=== PATIENT | female | born 1945 | race Caucasian/White ===

== ENCOUNTER 2017-01-06 10:08 | Inpatient (IN) | payer MEDICARE, MEDICAID ==
[~2017-01-06] VITALS: Ht 175.3 cm; Wt 84.1 kg
[~2017-01-06 10:08] MED LIST: GLIP2.5T3 PO; HYDR-3144 PO; LISI-170 PO; LORA0.5T PO; METF10002 PO; METF500T4 PO; MULT-658 PO
[2017-01-06] MEDS ORDERED: ONDANSETRON 2MG/ML, 2ML IVPush ONE (11:00)
[2017-01-06] MEDS ORDERED: SODIUM CHLORIDE FLUSH 10ML SYR IVF ONE (11:00)
[2017-01-06] MEDS ORDERED: SODIUM CHLORIDE 0.9% 1,000ML IVBOLUS ONE ×2 (11:00→13:30)
[2017-01-06] MEDS ORDERED: HYDROmorphone 1 MG/ML, 1ML IV ONE (11:00)
[2017-01-06] MEDS ORDERED: ONDANSETRON 2MG/ML, 2ML ONE (11:12)
[2017-01-06] MEDS ORDERED: HYDROmorphone 1 MG/ML, 1ML ONE ×2 (11:12→13:15)
[2017-01-06 11:39] LABS: ASPARTATE AMINO TRANSFERASE 11 U/L (15-37); BLOOD UREA NITROGEN 34 mg/dL (7-18)
[2017-01-06] MEDS ORDERED: OMNIPAQUE 350 MG/ML, 100ML BOTTLE ONE (12:48)
[2017-01-06 12:58] LABS: DIFF TOTAL CELLS COUNTED 100 CELL DIFF
[2017-01-06 13:00] LABS: VERIFY COUNTS? YES
[2017-01-06] MEDS ORDERED: MEROPENEM 1 GM in SODIUM CHLORIDE 0.9% 100 ML IV ONE (13:30)
[2017-01-06] MEDS ORDERED: VANCOMYCIN PER PHARMACY MC ONE (13:30)
[2017-01-06] MEDS ORDERED: HYDROmorphone 1 MG/ML, 1ML IVPush PRN (13:30)
[2017-01-06] MEDS ORDERED: VANCOMYCIN 1,600 MG in SODIUM CHLORIDE 0.9% 250 ML IV ONE (13:30)
[2017-01-06] MEDS ORDERED: LIDOCAINE 1%, 2ML ONE (14:55)
[2017-01-06] MEDS ORDERED: FENTANYL PF 250 MCG/5ML ONE (15:03)
[2017-01-06] MEDS ORDERED: PROPOFOL 10 MG/ML, 20ML ONE (15:19)
[2017-01-06] MEDS ORDERED: BUPIVACAINE/PF-EPI 0.5% 1:200K ONE (15:33)
[2017-01-06] MEDS ORDERED: LACTATED RINGERS 1,000 ML IV SCH (15:34)
[2017-01-06] MEDS ORDERED: OXYcodone 5 MG/5 ML ORAL.SOL UDC PO PRN (16:00)
[2017-01-06] MEDS ORDERED: hydrALAzine 20 MG/ML, 1ML IV PRN (16:00)
[2017-01-06] MEDS ORDERED: LIDOCAINE 1%, 2ML SQ PRN (16:00)
[2017-01-06] MEDS ORDERED: LABETALOL 5MG/ML, 20ML IV PRN (16:00)
[2017-01-06] MEDS ORDERED: ONDANSETRON 2MG/ML, 2ML IVPush PRN (16:00)
[2017-01-06] MEDS ORDERED: OXYcodone 5 MG/5 ML ORAL.SOL UDC ONE (16:04)
[2017-01-06] MEDS ORDERED: HYDROmorphone 2 MG/ML, 1ML ONE (16:04)
[2017-01-06] MEDS ORDERED: FENTANYL PF 100 MCG/2ML ONE (16:04)
[2017-01-06] MEDS: FENTANYL PF 100 MCG/2ML IV PRN ×2 (16:06→16:15)
[2017-01-06] MEDS: HYDROmorphone 1 MG/ML, 1ML IV PRN ×2 (16:09→16:20)
[2017-01-06 17:22] VITALS: BP 134/66
[2017-01-06] MEDS ORDERED: LORazepam 1MG TABLET PO PRN (18:00)
[2017-01-06] MEDS ORDERED: VANCOMYCIN PER PHARMACY MC PRN (18:00)
[2017-01-06] MEDS ORDERED: ACETAMINOPHEN 650 MG SUPP PR PRN (18:00)
[2017-01-06] MEDS ORDERED: HYDROmorphone 2MG TABLET PO PRN (18:00)
[2017-01-06] MEDS ORDERED: ONDANSETRON ODT 4 MG PO PRN (18:00)
[2017-01-06] MEDS ORDERED: ONDANSETRON 2MG/ML, 2ML IVP PRN (18:00)
[2017-01-06] MEDS ORDERED: ONDANSETRON 2MG/ML, 2ML IV PRN (18:00)
[2017-01-06] MEDS ORDERED: ACETAMINOPHEN 325 MG TABLET PO PRN ×2 (18:00)
[2017-01-06] MEDS ORDERED: LORazepam 2 MG/ML, 1ML IV PRN (18:00)
[2017-01-06] MEDS: INSULIN REGULAR 100 UNITS/ML, 3ML VIAL SQ-INSULIN SCH ×2 (18:00→21:00)
[2017-01-06] MEDS ORDERED: HYDROmorphone 1 MG/ML, 1ML IV PRN (18:00)
[2017-01-06] MEDS: CLINDAMYCIN PMX 900MG/50ML 50 ML IV SCH (18:09)
[2017-01-06] MEDS ORDERED: PHARMACOKINETIC CONSULTATION MC ONE (18:30)
[2017-01-06] MEDS ORDERED: PHARMACOKINETIC MONITORING MC PRN (18:30)
[2017-01-06 20:00] VITALS: BP 130/57
[2017-01-06] MEDS: OXYcodone/APAP 5/325MG TABLET PO PRN (20:45)
[2017-01-06] MEDS: POTASSIUM CHLORIDE 20 MEQ in SODIUM CHLORIDE 0.9% 1,000 ML IV SCH (20:46)
[2017-01-07 00:20] VITALS: BP 100/59
[2017-01-07] MEDS: OXYcodone/APAP 5/325MG TABLET PO PRN ×3 (02:31→19:12)
[2017-01-07] MEDS: CLINDAMYCIN PMX 900MG/50ML 50 ML IV SCH ×3 (02:32→19:10)
[2017-01-07] MEDS: MEROPENEM 1 GM in SODIUM CHLORIDE 0.9% 100 ML IV SCH ×2 (03:49→16:15)
[2017-01-07] MEDS: POTASSIUM CHLORIDE 20 MEQ in SODIUM CHLORIDE 0.9% 1,000 ML IV SCH ×2 (03:51→16:20)
[2017-01-07 04:16] VITALS: BP 97/55
[2017-01-07 05:55] LABS: BLOOD UREA NITROGEN 31 mg/dL (7-18)
[2017-01-07 05:56] LABS: ASPARTATE AMINO TRANSFERASE 11 U/L (15-37)
[2017-01-07 06:02] LABS: DIFF TOTAL CELLS COUNTED 100 CELL DIFF
[2017-01-07 06:03] LABS: VERIFY COUNTS? YES
[2017-01-07] MEDS: INSULIN REGULAR 100 UNITS/ML, 3ML VIAL SQ-INSULIN SCH ×4 (07:00→21:00)
[2017-01-07 07:40] VITALS: BP 126/67
[2017-01-07] MEDS: ENOXAPARIN 40 MG/0.4 ML SQ SCH (08:00)
[2017-01-07] MEDS: DIPHENHYDRAMINE 25 MG CAPSULE PO PRN (08:13)
[2017-01-07 12:43] VITALS: BP 114/62
[2017-01-07] MEDS ORDERED: MEROPENEM 1 GM in SODIUM CHLORIDE 0.9% 100 ML IV SCH (14:00)
[2017-01-07] MEDS: VANCOMYCIN 1,600 MG in SODIUM CHLORIDE 0.9% 250 ML IV SCH (17:46)
[2017-01-07 20:13] VITALS: BP 135/65
[2017-01-08] MEDS: OXYcodone/APAP 5/325MG TABLET PO PRN ×3 (00:26→15:58)
[2017-01-08] MEDS: POTASSIUM CHLORIDE 20 MEQ in SODIUM CHLORIDE 0.9% 1,000 ML IV SCH ×3 (00:27→11:27)
[2017-01-08] MEDS: CLINDAMYCIN PMX 900MG/50ML 50 ML IV SCH ×2 (02:04→10:12)
[2017-01-08 02:42] VITALS: BP 123/68
[2017-01-08] MEDS: MEROPENEM 1 GM in SODIUM CHLORIDE 0.9% 100 ML IV SCH ×2 (03:27→15:48)
[2017-01-08] MEDS ORDERED: VANCOMYCIN 1,600 MG in SODIUM CHLORIDE 0.9% 250 ML IV SCH (04:00)
[2017-01-08] MEDS: INSULIN REGULAR 100 UNITS/ML, 3ML VIAL SQ-INSULIN SCH ×4 (07:00→21:00)
[2017-01-08] MEDS: ENOXAPARIN 40 MG/0.4 ML SQ SCH (07:56)
[2017-01-08 08:05] VITALS: BP 160/73
[2017-01-08 09:15] LABS: BLOOD UREA NITROGEN 23 mg/dL (7-18)
[2017-01-08] MEDS: DOCUSATE 100 MG CAPSULE PO SCH ×2 (10:12→21:54)
[2017-01-08 13:15] VITALS: BP 126/73
[2017-01-08] MEDS: VANCOMYCIN 1,600 MG in SODIUM CHLORIDE 0.9% 250 ML IV SCH (16:41)
[2017-01-08 18:33] VITALS: BP 119/64
[2017-01-09] MEDS: MEROPENEM 1 GM in SODIUM CHLORIDE 0.9% 100 ML IV SCH ×2 (02:51→15:00)
[2017-01-09 04:29] VITALS: BP 143/73
[2017-01-09 05:49] LABS: BLOOD UREA NITROGEN 19 mg/dL (7-18)
[2017-01-09] MEDS: INSULIN REGULAR 100 UNITS/ML, 3ML VIAL SQ-INSULIN SCH ×4 (07:00→21:00)
[2017-01-09] MEDS: ENOXAPARIN 40 MG/0.4 ML SQ SCH (08:00)
[2017-01-09 08:10] VITALS: BP 154/81
[2017-01-09] MEDS: DOCUSATE 100 MG CAPSULE PO SCH ×2 (08:40→23:32)
[2017-01-09] MEDS ORDERED: KETOROLAC 30 MG/1 ML IVPush PRN (11:00)
[2017-01-09 13:57] VITALS: BP 165/90
[2017-01-09] MEDS ORDERED: LIDOCAINE/PRILOCAINE CRM W/TEG 5GM TP ONE (14:30)
[2017-01-09] MEDS: VANCOMYCIN 1,600 MG in SODIUM CHLORIDE 0.9% 250 ML IV SCH (15:01)
[2017-01-09] MEDS: metroNIDAZOLE 500 MG TABLET PO SCH ×2 (16:39→23:31)
[2017-01-09 20:29] VITALS: BP 137/75
[2017-01-09] MEDS: DIPHENHYDRAMINE 25 MG CAPSULE PO PRN (23:42)
[2017-01-10 01:33] VITALS: BP 173/82
[2017-01-10] MEDS: metroNIDAZOLE 500 MG TABLET PO SCH (06:08)
[2017-01-10] MEDS: INSULIN REGULAR 100 UNITS/ML, 3ML VIAL SQ-INSULIN SCH ×2 (07:00→11:00)
[2017-01-10 07:55] VITALS: BP 160/89
[2017-01-10] MEDS: ENOXAPARIN 40 MG/0.4 ML SQ SCH (08:00)
[2017-01-10] MEDS: DOCUSATE 100 MG CAPSULE PO SCH (08:29)
== END 2017-01-10 13:05 | disposition left against medical advice (07) | DRG 853 ==
LOC: ED 11:45 → EDIP 13:23 → 3NE 15:30 → 4NOR 16:23 → ORIP 16:44 → 4NOR 17:11
PROVIDERS: ADMIT Hospitalist; ATTEND Hospitalist
PROC: 0J9B0ZZ Drainage of Perineum Subcutaneous Tissue and Fascia, Open Approach (ICD-10-PCS; principal; 2017-01-06 16:30)
DX: A41.9 Sepsis, unspecified organism (principal); N17.0 Acute kidney failure with tubular necrosis; M48.56XA Collapsed vertebra, not elsewhere classified, lumbar region, initial encounter for fracture; E87.1 Hypo-osmolality and hyponatremia; L03.315 Cellulitis of perineum; L02.215 Cutaneous abscess of perineum; E11.319 Type 2 diabetes mellitus with unspecified diabetic retinopathy without macular edema; E11.65 Type 2 diabetes mellitus with hyperglycemia; F12.90 Cannabis use, unspecified, uncomplicated; F17.200 Nicotine dependence, unspecified, uncomplicated; G89.4 Chronic pain syndrome; J44.9 Chronic obstructive pulmonary disease, unspecified; K80.20 Calculus of gallbladder without cholecystitis without obstruction; W18.11XA Fall from or off toilet without subsequent striking against object, initial encounter; S20.212A Contusion of left front wall of thorax, initial encounter; I10 Essential (primary) hypertension; W18.30XA Fall on same level, unspecified, initial encounter; Y92.002 Bathroom of unspecified non-institutional (private) residence as the place of occurrence of the external cause; Z85.3 Personal history of malignant neoplasm of breast; Z83.3 Family history of diabetes mellitus; Z88.8 Allergy status to other drugs, medicaments and biological substances; Z91.14 Patient's other noncompliance with medication regimen; Z91.19 Patient's noncompliance with other medical treatment and regimen; Z88.6 Allergy status to analgesic agent
CPT/HCPCS: 36415; 71260; 74177; 80048; 80053; 80061; 82962; 83036; 83605; 83735; 84100; 84145; 84439; 84443; 85025; 85610; 85730; 87040; 87070; 87075; 87205; 93005; 96361; 96365; 96375; 99157; J1170; J1815; J2185; J2405; J2704; J3010; J3370; J3480; J3490; Q9967; J7030; J7050; J7120; Q0163